=== PATIENT | male | born 1985 | race Caucasian/White ===

== ENCOUNTER 2021-09-07 20:22 | Emergency (ER) | payer SELFPAY ==
[~2021-09-07] VITALS: Ht 180.3 cm; Wt 108.9 kg
[2021-09-07 20:30] VITALS: BP 174/100
[2021-09-07] MEDS ORDERED: AMOXICILLIN 500 MG CAP PO ONE (23:10)
[2021-09-07] MEDS ORDERED: AMOX500C25 PO (23:13)
--- NOTE | 2021-09-07 23:49 | NUR ---
patient called-- no answer at this time
--- NOTE | 2021-09-08 00:01 | NUR ---
PATIENT ELOPED FROM FACILITY. DISCHARGE INSTRUCTIONS NOT GIVEN TO PATIENT. DR. DELACRUZ NOTIFIED.
--- NOTE | 2021-09-08 00:01 | NUR ---
call patient on their phone-- no answer.
== END 2021-09-08 00:07 | disposition left against medical advice (07) ==
LOC: MED 20:22
DX: J02.9 Acute pharyngitis, unspecified (principal); Z20.822 Contact with and (suspected) exposure to COVID-19; Z79.899 Other long term (current) drug therapy
CPT/HCPCS: 99283